=== PATIENT | male | born 1970 | race Caucasian/White ===

== ENCOUNTER 2017-02-05 14:04 | Emergency (ER) | payer MEDICARE, OTHER, SELFPAY ==
[~2017-02-05] VITALS: Ht 195.6 cm; Wt 87.0 kg
[2017-02-05 14:06] VITALS: BP 132/77
[2017-02-05] MEDS ORDERED: HYDROcodone/APAP 5/325 TABLET PO ONE (14:30)
[2017-02-05] MEDS ORDERED: GABA300C10 PO (14:35)
[2017-02-05] MEDS ORDERED: HYDROcodone/APAP 5/325 TABLET ONE (14:36)
== END 2017-02-05 15:01 | disposition home or self-care (01) ==
LOC: ED 14:55
DX: G89.29 Other chronic pain (principal); M79.672 Pain in left foot
CPT/HCPCS: 99282